=== PATIENT | female | born 1980 | race Caucasian/White ===

== ENCOUNTER 2016-06-21 18:46 | Emergency (ER) ==
[2016-06-21] MEDS ORDERED: DECADRON IM ONE (19:38)
[2016-06-21] MEDS ORDERED: NORFLEX IM ONE (19:38)
--- NOTE | 2016-06-21 19:40 | PROVIDER DOCUMENTATION ---
HPI-Musculoskeletal Pain/Inj - GENERAL Chief Complaint: Extremity Injury Stated Complaint: FALL/ARM INJURY Time Seen by Provider: 06/21/16 19:34 Source: patient - HX OF PRESENT ILLNESS-MUSKULOSKELTAL Nature of Presenting Problem: 35 y/o WF s/p fall, c/o fall on the left arm. States she was helping to rake leaves, the dumpster fell over, she stepped on the left and fell frontwards into the garbage can landing on the left shoulder. majority of the pain just proximal to the left shoulder. States she hit her head, denies loc. Denies pre- arrival treatments, but is on suboxone. Review of Systems - Adult - REVIEW OF SYSTEMS - ADULT Constitutional: reports: no symptoms reported. denies: chills, fever, fatique Eyes: reports: no symptoms reported. denies: decreased vision, double vision, eye pain Ears, Nose, Mouth & Throat: reports: no symptoms reported. denies: ear pain, nose pain, throat pain Cardiovascular: reports: no symptoms reported Respiratory: reports: no symptoms reported. denies: cough, shortness of breath Gastrointestinal: reports: no symptoms reported. denies: abdominal pain, nausea , vomiting Genitourinary: reports: no symptoms reported Musculoskeletal: reports: see HPI, bone pain, joint pain, muscle aches Integumentary: reports: no symptoms reported. denies: hair loss, rash Neurological: reports: no symptoms reported. denies: headache/migraines Psychiatric: reports: no symptoms reported Endocrine: reports: no symptoms reported Hematologic/Lymphatic: reports: no symptoms reported Allergic/Immunologic: reports: no symptoms reported All Other Systems: Reviewed and Negative Past History - Adult - PAST MEDICAL HISTORY-ADULT Review of Records: reports: Old Records Reviewed, Nursing Assessment Review, Medications Reviewed Major Childhood Illnesses: reports: denies history Cardiovascular: reports: denies history Respiratory: reports: denies history Gastrointestinal: reports: denies history Obstetrical/Gynecological: reports: endometriosis, ovarian cysts Genitourinary: reports: other (bladder mesh) Musculoskeletal: reports: denies history Neurological: reports: denies history Psychiatric: reports: anxiety, depression, ptsd Endocrine/Immune: reports: denies history Other Conditions: reports: denies history - PRIOR SURGERIES/PROCEDURES Surgical/Procedure History: reports: hysterectomy, other (bladder tack/sling- oopherectomy) - IMMUNIZATION STATUS Childhood Immunizations: See Nurse Assessment Flu Vaccine: See Nurse Assessment - FAMILY HISTORY Family History: reviewed, not pertinent Physical Exam-Injury Related - Physical Exam-Injury Related Initial Vital Signs Reviewed: Yes General Appearance: appears well, alert, no apparent distress Eyes: PERRL/EOMI, pink conjunctivae Head, Ears, Nose, Mouth & Throat: normocephalic/atraumatic, moist mucous membranes Neck: non-tender, full range of motion, supple, normal inspection Respiratory: chest non-tender, lungs clear, normal breath sounds, no pleuratic chest pain, no respiratory distress, no accessory muscle use. negative: respiratory distress, decreased breath sounds, accessory muscle use, crackles, rales, rhonchi, stridor, wheezing Cardiovascular: normal peripheral pulses, regular rate, rhythm Peripheral Pulses: radial (R): 2+, radial (L): 2+ Extremity: normal gait, other (left shoulder: dec ro sedcondary to pain. Cannot lift the arm away from her body. Most tender at the proximal humerus. 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/5) Integumentary: normal color, warm/dry Neurologic: grossly normal, no motor/sensory deficits Psych/Mental Status: normal mood/affect, normal thought content, normal thought process, oriented x 3 - Glascow Coma Score Best Eye Response (Jordyn): (4) open spontaneously Best Verbal Response ([place]): (5) oriented Best Motor Response (Jordyn): (6) obeys commands Progress - PLAN OF CARE/RESULTS Progress/Plan/Lab Results: Vital Signs Temp Pulse Resp BP Pulse Ox 06/21/16 21:09 98.7 F 122 H 18 140/89 93 L 06/21/16 19:16 99.1 F 108 H 18 106/85 100 aspirin Allergy (Intermediate, Verified 06/21/16 20:23) VOMITING Fluoxetine HCl [Prozac] 20 mg PO DAILY 10/09/14 Buprenorphine/Naloxone S.l. [Suboxone 2 mg/0.5 mg] 1 tab PO DAILY 06/21/16 Cyclobenzaprine [Flexeril] 10 mg PO TID #20 tablet 06/21/16 Lorazepam [Ativan] 1 tab PO BID 06/21/16 Orders Category Date Time Status Shoulder Immobilizer DIRECTED Care 06/21/16 19:52 Active HUMERUS-LEFT [RAD] Stat Exams 06/21/16 19:20 Taken SHOULDER-LEFT [RAD] Stat Exams 06/21/16 19:20 Taken Dexamethasone [Decadron] Med 06/21/16 19:38 Discontinued 4 mg IM NOW ONE Orphenadrine [Norflex] Med 06/21/16 19:38 Discontinued 60 mg IM NOW ONE - XRAY 1 XRAY: Left XRAY Study: Shoulder, Humerus, Elbow Impression: Abnormal (neck fx of humerus ER prelim) Procedures - SPLINTING Left Upper Extremity Pre-Procedure Neurovascular Exam: Intact Pre-Fabricated Splint: Shoulder Immobilizer Applied By: Mid-level Post Procedure Neurovascular Exam: Intact Departure - Departure Time of Disposition Order: 20:16 DIAGNOSIS: Fracture, humerus closed Qualifiers: Encounter type: initial encounter Humerus Location: surgical neck Fracture morphology: unspecified fracture morphology Fracture alignment: nondisplaced Laterality: left Qualified Code(s): S42.215A - Unspecified nondisplaced fracture of surgical neck of left humerus, initial encounter for closed fracture Disposition: HOME 01 Certified Medical Emergency: Emergent Condition: Stable Additional Instructions: Follow up with Dr. Cid, orthopedic ED Follow Up Instructions: You have been treated by a care provider in the Emergency Department. These instructions are being provided to you so you can have an understanding of how to care for yourself upon discharge. Upon discharge from the Emergency Department, you are responsible for making arrangements for follow-up care by a physician of your choice. Take all prescribed medications as directed. Return to the Emergency Department immediately for any new or worsening symptoms. You may call the Physician Referral phone number at [phone] to obtain a list of Physicians who are taking new patients. Prescriptions: Cyclobenzaprine [Flexeril] 10 mg PO TID #20 tablet Referrals: None,PCP [Primary Care Provider] - Ciara Cid MD [STAFF PHYSICIAN] - Forms: Return to School/Parent Work Instructions: Humerus Fracture, Treated with Immobilization, [id number], Cyclobenzaprine tablets Attestation - Physician/ MIGUEL Attestation Patient care was provided by Advanced Practice Provider:: Yes Advanced Practice Provider:: Gracia Vargas Advanced Practice Provider documentation review:: The Mid-level provider documentation, treatment plan and medical decision making was reviewed by the physician who agrees with all treatment and medical decision making by the MLP.
[2016-06-21 21:10] VITALS: BP 140/89
--- NOTE | 2016-06-22 09:45 | Diag Imaging Result Document ---
PROCEDURE NAME: SHOULDER-LEFT - 06/21/2016 X-RAY LEFT SHOULDER, 3 VIEWS: COMPARISON: None. FINDINGS: There is a nondisplaced fracture of the proximal humerus. There is a transverse fracture line at the surgical neck of the humeral head, and there is also a fracture line through the greater tuberosity which is only minimally displaced. Joint spaces are otherwise clear. No separation at the acromioclavicular joint. IMPRESSION: Acute left shoulder fractures.
--- NOTE | 2016-06-22 11:00 | Diag Imaging Result Document ---
PROCEDURE NAME: ELBOW 2 VIEWS LEFT - 06/21/2016 X-RAY LEFT ELBOW, 2 VIEWS: COMPARISON: None. FINDINGS: There is no fracture or dislocation. IMPRESSION: Negative exam.
--- NOTE | 2016-06-22 11:03 | Diag Imaging Result Document ---
PROCEDURE NAME: HUMERUS-LEFT - 06/21/2016 X-RAY LEFT HUMERUS, 2 VIEWS: COMPARISON: None. FINDINGS: There is fracture of the humeral head, best seen on the shoulder views. There is no fracture of the distal humerus. IMPRESSION: Shoulder fracture.
== END 2016-06-21 21:14 | disposition home or self-care (01) ==
LOC: P.ED 18:46
DX: S42.215A Unspecified nondisplaced fracture of surgical neck of left humerus, initial encounter for closed fracture (principal); M25.512 Pain in left shoulder; M79.1 Myalgia; F41.9 Anxiety disorder, unspecified; F32.9 Major depressive disorder, single episode, unspecified; F43.10 Post-traumatic stress disorder, unspecified; Z79.899 Other long term (current) drug therapy; Z87.42 Personal history of other diseases of the female genital tract; W18.30XA Fall on same level, unspecified, initial encounter
CPT/HCPCS: 73070; 96372; J1100; J2360